=== PATIENT | male | born 1985 | race Caucasian/White ===

== ENCOUNTER 2019-02-15 10:04 | Emergency (ER) | payer BC ==
[2019-02-15] MEDS ORDERED: Sodium Chloride 0.9% 10 ML Syringe FLUSH PRN (10:56)
[2019-02-15] MEDS ORDERED: Clindamycin Phosphate 900 MG in Sodium Chloride 0.9% 100 ML IV ONE (10:58)
[2019-02-15] MEDS ORDERED: Sodium Chloride 0.9% 10 ML Syringe FLUSH ONE (11:10)
[2019-02-15] MEDS ORDERED: Iopamidol 612 MG/ML 100 ML Bottle IVPUSH ONE (11:10)
[2019-02-15] MEDS ORDERED: Clindamycin Phosphate in D5W 900 MG in Premix Bag 1 BAG IV ONE ×2 (11:15)
--- NOTE | 2019-02-15 11:18 | EDM.PDOC ---
ED HPI GENERAL MEDICAL PROBLEM - General Chief Complaint: ENT Problem Stated Complaint: ABSCESS TOOTH SENT BY DENTIST Time Seen by Provider: 02/15/19 10:42 Source of Information: Reports: Patient History Limitations: Reports: No Limitations - History of Present Illness INITIAL COMMENTS - FREE TEXT/NARRATIVE: The patient presents with a dental abscess. He said he started noticing it last week. He saw his dentist on Wednesday and was given amoxicillin. That did not help so yesterday he was switched to clindamycin. He went back today and his dentist anaesthetized the area and she was trying to edil it open but he had to much pain. He has swelling to the right upper jaw line and face. He has no fever or chills. He has no chest pain, shortness of breath, abdominal pain, nausea or vomiting. Onset: Gradual Duration: Day(s): Location: Reports: Face Quality: Reports: Sharp Severity: Severe Improves with: Reports: None Worsens with: Reports: None Associated Symptoms: Reports: No Other Symptoms Right Oral/Mouth Pain Score (Numeric/FACES): 8 - Related Data Allergies Allergy/AdvReac Type Severity Reaction Status Date / Time No Known Allergies Allergy Verified 02/15/19 10:39 Home Meds: Home Meds Hydrocodone/Acetaminophen [Hydrocodon-Acetaminophen 5-325] 1 tab PO Q6H PRN [History] oxyCODONE HCl/Acetaminophen [Percocet 5-325 mg Tablet] 1 - 2 each PO Q6HR PRN # 10 tablet 02/15/19 [Rx] Past Medical History - Past Surgical History HEENT Surgical History: Reports: Tonsillectomy Social & Family History - Tobacco Use Smoking Status *Q: Current Every Day Smoker Years of Tobacco use: 15 Packs/Tins Daily: 0.2 - Caffeine Use Caffeine Use: Reports: Coffee, Energy Drinks, Soda, Tea - Recreational Drug Use Recreational Drug Use: No ED ROS ENT - Review of Systems Review Of Systems: See Below Constitutional: Reports: No Symptoms HEENT: Reports: Other (Right facial swelling and dental pain) Respiratory: Reports: No Symptoms Cardiovascular: Reports: No Symptoms Endocrine: Reports: No Symptoms GI/Abdominal: Reports: No Symptoms : Reports: No Symptoms Musculoskeletal: Reports: No Symptoms ED EXAM, ENT - Physical Exam Exam: See Below Exam Limited By: No Limitations General Appearance: Alert, No Apparent Distress Ears: Normal External Exam Nose: Normal Inspection Mouth/Throat: Other (Pain upon palpation to the right upper jaw line and edema.) Head: Other (Edema to the right side of his face) Neck: Normal Inspection, Supple, Non-Tender Respiratory/Chest: No Respiratory Distress, Lungs Clear, Normal Breath Sounds Cardiovascular: Regular Rate, Rhythm, No Edema, No Murmur GI/Abdominal: Soft, Non-Tender, No Organomegaly, No Mass Rectal (Males) Exam: Normal Exam Course - Vital Signs Last Recorded V/S: Last Vital Signs Temp 97.1 F 02/15/19 10:36 Pulse 86 02/15/19 10:36 Resp 16 02/15/19 10:36 BP 157/106 H 02/15/19 10:36 Pulse Ox 96 02/15/19 10:36 - Orders/Labs/Meds Orders: Active Orders 24 hr Category Date Time Status Peripheral IV Care [RC] . DIRECTED Care 02/15/19 10:57 Active Maxillofacial with CM [Max Facial Sinus w Cont] [CT] Exams 02/15/19 10:57 Taken Stat Sodium Chloride 0.9% [Saline Flush] Med 02/15/19 10:56 Active 10 ml FLUSH ASDIRECTED PRN Peripheral IV Insertion Adult [OM.PC] Stat Oth 02/15/19 10:56 Ordered Medication Orders Sodium Chloride (Saline Flush) 10 ml FLUSH ASDIRECTED PRN PRN Reason: Keep Vein Open Labs: Laboratory Tests 02/15/19 02/15/19 Range/Units 11:47 11:47 WBC 14.30 H (4.23-9.07) K/mm3 RBC 5.42 (4.63-6.08) M/mm3 Hgb 16.2 (13.7-17.5) gm/dl Hct 46.8 (40.1-51.0) % MCV 86.3 (79.0-92.2) fl MCH 29.9 (25.7-32.2) pg MCHC 34.6 (32.2-35.5) g/dl RDW Std Deviation 39.7 (35.1-43.9) fL Plt Count 190 (163-337) K/mm3 MPV 10.6 (9.4-12.3) fl Neut % (Auto) 81.7 H (34.0-67.9) % Lymph % (Auto) 10.6 L (21.8-53.1) % Posey % (Auto) 7.1 (5.3-12.2) % Eos % (Auto) 0.2 L (0.8-7.0) Baso % (Auto) 0.1 (0.1-1.2) % Neut # (Auto) 11.67 H (1.78-5.38) K/mm3 Lymph # (Auto) 1.52 (1.32-3.57) K/mm3 Posey # (Auto) 1.02 H (0.30-0.82) K/mm3 Eos # (Auto) 0.03 L (0.04-0.54) K/mm3 Baso # (Auto) 0.02 (0.01-0.08) K/mm3 Manual Slide Review Normal smear Sodium 135 L (136-145) mEq/L Potassium 4.0 (3.5-5.1) mEq/L Chloride 98 (98-107) mEq/L Carbon Dioxide 27 (21-32) mEq/L Anion Gap 14.0 (5-15) BUN 12 (7-18) mg/dL Creatinine 1.2 (0.7-1.3) mg/dL Est Cr Clr Drug Dosing 89.19 mL/min Estimated GFR (MDRD) > 60 (>60) mL/min BUN/Creatinine Ratio 10.0 L (14-18) Glucose 95 (74-106) mg/dL Calcium 9.3 (8.5-10.1) mg/dL Total Bilirubin 1.6 H (0.2-1.0) mg/dL AST 59 H (15-37) U/L ALT 96 H (16-63) U/L Alkaline Phosphatase 86 (46-116) U/L C-Reactive Protein 3.9 H* (<1.0) mg/dL Total Protein 8.1 (6.4-8.2) g/dl Albumin 4.5 (3.4-5.0) g/dl Globulin 3.6 gm/dL Albumin/Globulin Ratio 1.3 (1-2) Meds: Medications Generic Name Dose Route Start Last Admin Trade Name Freq PRN Reason Stop Dose Admin Sodium Chloride 10 ml 02/15/19 10:56 Saline Flush FLUSH ASDIRECTED PRN Keep Vein Open Discontinued Medications Generic Name Dose Route Start Last Admin Trade Name Max PRN Reason Stop Dose Admin Clindamycin Phosphate 900 mg/ 106 mls @ 200 mls/hr 02/15/19 10:58 02/15/19 11 :15 Sodium Chloride IV 02/15/19 11:29 Not Given ONETIME ONE Clindamycin Phosphate 900 mg/ 50 mls @ 100 mls/hr 02/15/19 11:15 02/15/19 11: 32 Premix IV 02/15/19 11:44 100 mls/hr ONETIME ONE Administration Iopamidol 100 ml 02/15/19 11:10 02/15/19 11:34 Isovue-300 (61%) IVPUSH 02/15/19 11:11 100 ml ONETIME ONE Administration Ondansetron HCl 4 mg 02/15/19 11:31 02/15/19 11:43 Zofran IVPUSH 02/15/19 11:32 4 mg ONETIME ONE Administration Sodium Chloride 10 ml 02/15/19 11:10 02/15/19 11:34 Saline Flush FLUSH 02/15/19 11:11 10 ml ONETIME ONE Administration - Re-Assessments/Exams Free Text/Narrative Re-Assessment/Exam: 02/15/19 11:19 I ordered an IV NS, clindamycin 900mg IV, labs, and a CT of his facial bones. 02/15/19 13:47 His WBC was elevated at 14.3. His CRP was elevated at 3.9. His AST was elevated at 59 and ALT was elevated at 96. His CT shows right medial inframalar soft tissue swelling. The findings consistent with cellulitis. No soft tissue abscess identified. Right maxillary lateral incisor periapical abscess, likely responsible for the above. I called Dr Mills to let her know. 02/15/19 14:21 I will do some outpatient clindamycin IV and then switch to orals. Departure - Departure Time of Disposition: 14:25 Disposition: Home, Self-Care 01 Condition: Good Clinical Impression: Dental abscess, Pain, dental - Discharge Information *PRESCRIPTION DRUG MONITORING PROGRAM REVIEWED*: No *COPY OF PRESCRIPTION DRUG MONITORING REPORT IN PATIENT JEAN CARLOS: No Prescriptions: oxyCODONE HCl/Acetaminophen [Percocet 5-325 mg Tablet] 1 - 2 each PO Q6HR PRN # 10 tablet PRN Reason: Pain Referrals: PCP,None [Primary Care Provider] - Forms: ED Department Discharge Additional Instructions: Please return this evening for IV clindamycin. Come back tomorrow morning, tomorrow noon and tomorrow evening for more doses. Then take the clindamycin orally. Put warm compresses on you face at least 3 times per day. Sleep with the head of you bed or in a chair to reduce the swelling. Take motrin or tylenol for pain. If that does not help, try the percocet. - My Orders Last 24 Hours: My Active Orders 02/15/19 10:56 Sodium Chloride 0.9% [Saline Flush] 10 ml FLUSH ASDIRECTED PRN Peripheral IV Insertion Adult [OM.PC] Stat 02/15/19 10:57 Peripheral IV Care [RC] . DIRECTED Maxillofacial with CM [Max Facial Sinus w Cont] [CT] Stat - Assessment/Plan Last 24 Hours: My Active Orders 02/15/19 10:56 Sodium Chloride 0.9% [Saline Flush] 10 ml FLUSH ASDIRECTED PRN Peripheral IV Insertion Adult [OM.PC] Stat 02/15/19 10:57 Peripheral IV Care [RC] . DIRECTED Maxillofacial with CM [Max Facial Sinus w Cont] [CT] Stat
[2019-02-15] MEDS ORDERED: Ondansetron 4 MG/2 ML SDV IVPUSH ONE ×2 (11:31→14:53)
[2019-02-15] MEDS ORDERED: HYDROmorphone 1 MG/ML Syringe IVPUSH ONE (14:51)
[2019-02-15] MEDS ORDERED: Clindamycin Phosphate 600 MG/4 ML SDV ONE (19:25)
--- NOTE | 2019-02-16 09:02 | CT ---
CT maxillofacial Technique: Multiple axial sections through the face were obtained. Reconstructed coronal and sagittal images were obtained. Intravenous contrast was utilized. Findings: Soft tissue swelling noted within the right upper cheek. Lucency is identified anteriorly within the right side of the maxilla around the lateral maxillary periapical incisor. This is most likely due to dental abscess. Minimal areas of mucosal thickening seen within the maxillary sinuses which is incidental. No air-fluid levels are seen within the paranasal sinuses. Mastoid sinuses and middle ear cavities are clear. No acute fracture or other abnormality is appreciated. No focal soft tissue abscess is seen. Impression: 1. Soft tissue swelling within the upper right cheek. This is compatible with cellulitis. 2. Probable periapical abscess around the maxillary lateral incisor on the right side. 3. Other findings believed to be incidental. Diagnostic code #3 I agree with preliminary report from [facility], finalized on 02/15/19, 1:47 PM Central Time
== END 2019-02-15 15:25 | disposition home or self-care (01) ==
LOC: JD.ED 10:04
DX: K04.7 Periapical abscess without sinus (principal); F17.210 Nicotine dependence, cigarettes, uncomplicated
CPT/HCPCS: 36415; 70487; 80053; 85025; 86140; 96365; 96375; 96376; 99283; J1170; J2405; J3490; Q9967